=== PATIENT | male | born 1955 | race Caucasian/White ===

== ENCOUNTER 2024-05-06 12:59 | Outpatient (CLI) | payer MEDICARE, SELFPAY ==
[2024-05-06 15:37] LABS: Alanine Aminotransferase 20 U/L (6-50); Albumin Level 4.4 g/dL (3.5-5.1); Alkaline Phosphatase 68 U/L (38-126); Anion Gap 10 mmol/L (4-12); Aspartate Amino Transferase 40 U/L (17-59); Bilirubin,Total 0.5 mg/dL (0.2-1.3); Blood Urea Nitrogen 16 mg/dL (9-20); Carbon Dioxide 28 mmol/L (22-30); Chloride 101 mmol/L (98-107); Cholesterol 236 mg/dL (0-200); Estimated Glomerular Filt Rate > 60; Glucose 92 mg/dL (65-110); HDL Direct 40 mg/dL; Potassium 4.3 mmol/L (3.4-5.0); Sodium 139 mmol/L (137-145); Triglycerides 188 mg/dL (<150)
[2024-05-06 15:47] LABS: LDL Cholesterol Direct 131 mg/dL
[2024-05-06 15:57] LABS: Basophils Percent Auto 0.2 % (0.2-1.2); Eosinophils Percent Auto 0.6 % (0-4.4); Hematocrit 44.2 % (42.0-52.0); Hemoglobin 14.4 g/dL (14.0-18.0); Immature Granulocyte Absolute 0.01 K/mm3 (0.00-0.031); Immature Granulocyte Percent A 0.2 % (0-0.5); Lymphocytes Absolute Auto 1.21 K/mm3 (0.9-3.2); Lymphocytes Percent Auto 22.4 % (18.3-44.2); Mean Corpuscular HGB Conc 32.6 g/dl (32-36); Mean Corpuscular Hemoglobin 29.1 pg (26-34); Mean Corpuscular Volume 89.5 fl (80-100); Monocytes Absolute Auto 0.4 K/mm3 (0.1-0.6); Monocytes Percent Auto 7.4 % (2.6-8.5); Neutrophils Absolute Auto 3.7 K/mm3 (1.3-6.7); Neutrophils Percent Auto 69.2 % (45.5-73.1); Platelet Count Result 228 k/mm3 (150-375); Red Blood Count 4.94 M/mm3 (4.6-6.20); Red Cell Distribution Width 13.3 % (11.5-14.5); White Blood Count 5.4 K/mm3 (4.5-10.0)
[2024-05-06 16:19] LABS: Hepatitis B Surface Antigen Negative (Negative)
[2024-05-06 16:34] LABS: Hepatitis C Virus Antibody Negative (Negative)
[2024-05-06 16:38] LABS: HIV 1/2 Ab P24 Ag Result Negative (Negative)
== END 2024-05-06 13:00 | disposition home or self-care (01) ==
LOC: ANHGOSHLAB 13:02
PROVIDERS: PCP Family Medicine; Visit Provider Nurse Practitioner Family
DX: E88.810 Metabolic syndrome (principal); Z85.46 Personal history of malignant neoplasm of prostate; E78.2 Mixed hyperlipidemia; I10 Essential (primary) hypertension
CPT/HCPCS: 36415; 80053; 80061; 84443; 85025; 86703; 86803; 87340; G0432